=== PATIENT | female | born 1960 | race Caucasian/White ===

== ENCOUNTER 2016-11-13 06:18 | Emergency (ER) | payer OTHER ==
[2016-11-13] MEDS ORDERED: DIPH,PERTUS(ACELL)TETVAC-LF 0.5 ML VIAL IM ONE (06:32)
--- NOTE | 2016-11-13 08:04 | XR ---
EXAMINATION TYPE: XR elbow complete RT DATE OF EXAM: 11/13/2016 CLINICAL HISTORY: Fall injury with right elbow pain. TECHNIQUE: Frontal, lateral and oblique images of the right elbow are obtained. COMPARISON: None FINDINGS: There is no acute fracture/dislocation evident in the right elbow. No abnormal fat pad si gns are seen. The overlying soft tissue appears unremarkable. IMPRESSION: There is no acute fracture or dislocation in the right elbow.
--- NOTE | 2016-11-13 08:12 | ED ---
General Adult HPI - General Chief complaint: Extremity Injury, Upper Stated complaint: Fall-[facility] Time Seen by Provider: 11/13/16 07:03 Source: patient, RN notes reviewed Mode of arrival: ambulatory Limitations: no limitations - History of Present Illness Initial comments: 56 yo female presents status post fall at work. Patient states she caught her right knee and fell onto her right elbow. She is complaining only of elbow pain. She denies any head or neck trauma. Denies any LOC. Patient has no significant past medical history. - Related Data Home Medications Medication Instructions Recorded Confirmed PARoxetine HCL [Paxil Cr] 25 mg PO DAILY 11/13/16 11/13/16 Allergies Allergy/AdvReac Type Severity Reaction Status Date / Time azithromycin Allergy Rash/Hives Verified 11/13/16 07:54 Review of Systems ROS Statement: Those systems with pertinent positive or pertinent negative responses have been documented in the HPI. ROS Other: All systems not noted in ROS Statement are negative. Cardiovascular: Denies: chest pain Past Medical History Past Medical History: No Reported History History of Any Multi-Drug Resistant Organisms: None Reported Past Surgical History: Tubal Ligation Past Psychological History: No Psychological Hx Reported Smoking Status: Current every day smoker Past Alcohol Use History: Daily Past Drug Use History: None Reported General Exam Limitations: no limitations General appearance: alert, in no apparent distress Head exam: Present: atraumatic, normocephalic Eye exam: Present: normal appearance, PERRL ENT exam: Present: normal exam, normal oropharynx, mucous membranes moist Neck exam: Present: normal inspection, full ROM. Absent: tenderness Respiratory exam: Present: normal lung sounds bilaterally, respiratory distress Cardiovascular Exam: Present: regular rate, normal rhythm GI/Abdominal exam: Present: soft. Absent: distended, tenderness Extremities exam: Present: full ROM, other Course Vital Signs 11/13/16 11/13/16 11/13/16 06:28 08:36 08:50 Temperature 97.1 F L 97.9 F Pulse Rate 61 77 Respiratory 18 16 Rate Blood Pressure 188/92 212/93 159/74 O2 Sat by Pulse 100 100 Oximetry Medical Decision Making - Medical Decision Making 56-year-old female presenting with acute onset right elbow pain status post fall. Patient does have a minor abrasion, tenderness is updated. X-ray is negative for any acute fracture dislocation. Patient is placed in an Jhonny wrap for comfort. She will be discharged with outpatient follow-up. Diagnosis right elbow contusion. Disposition Clinical Impression: Elbow contusion Disposition: HOME SELF-CARE Condition: Good Instructions: Elbow Sprain (ED) Referrals: Lc Vaz MD [Primary Care Provider] - 1-2 days Time of Disposition: 08:11
[2016-11-13 08:37] VITALS: PULSE 77; RESP 16; TEMP 97.9
[2016-11-13 08:51] VITALS: BP 159/74
== END 2016-11-13 08:52 | disposition home or self-care (01) ==
LOC: EC 06:18
DX: S50.01XA Contusion of right elbow, initial encounter (principal); F17.200 Nicotine dependence, unspecified, uncomplicated; Z88.1 Allergy status to other antibiotic agents; Z23 Encounter for immunization; Z79.899 Other long term (current) drug therapy; W01.198A Fall on same level from slipping, tripping and stumbling with subsequent striking against other object, initial encounter; Y93.89 Activity, other specified; Y99.0 Civilian activity done for income or pay; Y92.69 Other specified industrial and construction area as the place of occurrence of the external cause
CPT/HCPCS: 90471; 90715; 99283

== ENCOUNTER 2018-08-17 12:16 | Emergency (ER) | payer OTHER ==
[2018-08-17 12:25] VITALS: RESP 18; TEMP 98.5
[2018-08-17] MEDS ORDERED: MORPHINE SULFATE 4 MG/ML SYRINGE IM STA ×2 (12:31→15:36)
[2018-08-17] MEDS ORDERED: LIDOCAINE 1% INJ 10MG/ML (20 ML MDV) SQ STA (12:32)
--- NOTE | 2018-08-17 13:00 | ED ---
General Adult HPI - General Chief complaint: Fall Stated complaint: fall, rt elbow injury, eye lac, rt ear Time Seen by Provider: 08/17/18 12:25 Source: patient Mode of arrival: ambulatory Limitations: no limitations - History of Present Illness Initial comments: 58-year-old female patient with no pertienent pmhx presents to ED with a fall sustained at approximately 8 PM last night. Patient reports that she was getting up off the toilet, fell forward making contact with her head and the wall. Patient denies any loss of consciousness. Patient primary complaint is a approximately 2 cm laceration above her right eyebrow as well as pain in her left elbow. Patient reports that she had her left elbow on the ground after the fall. Patient denies any loss of consciousness. Patient denies any headache, changes in vision, pain in neck. Patient ambulatory without difficulty today. Patient states that last tetanus shot was within 5 years. Systemic: Pt denies fatigue, myalgia, fever/chills, rash. Pt denies weakness, night sweats, weight loss. Neuro: Pt denies headache, visual disturbances, syncope or pre-syncope. HEENT: Pt denies ocular discharge or irritation, otalgia, rhinorrhea, pharyngitis or notable lymphadenopathy. Cardiopulmonary: Pt denies chest pain, SOB, heart palpitations, dyspnea on exertion. Abdominal/GI: Pt denies abdominal pain, n/v/d. : Pt denies dysuria, burning w/ urination, frequency/urgency. Denies new onset urinary or bowel incontinence. MSK: Pt denies myalgia, loss of strength or function in extremities. Neuro: Pt denies new onset weakness, paresthesias. - Related Data Home Medications Medication Instructions Recorded Confirmed PARoxetine HCL [Paxil Cr] 25 mg PO DAILY 11/13/16 11/13/16 Previous Rx's Medication Instructions Recorded Hydrocodone/Acetaminophen [[place] 1 each PO Q6HR PRN #12 tab 08/17/18 5-325] Allergies Allergy/AdvReac Type Severity Reaction Status Date / Time azithromycin Allergy Rash/Hives Verified 08/17/18 12:24 Review of Systems ROS Statement: Those systems with pertinent positive or pertinent negative responses have been documented in the HPI. ROS Other: All systems not noted in ROS Statement are negative. Past Medical History Past Medical History: No Reported History History of Any Multi-Drug Resistant Organisms: None Reported Past Surgical History: Tubal Ligation Past Psychological History: No Psychological Hx Reported Smoking Status: Current every day smoker Past Alcohol Use History: Abuse, Daily, Heavy Past Drug Use History: None Reported General Exam - General Exam Comments Initial Comments: Constitutional: NAD, AOX3, Pt has pleasant affect. HEENT: NC/AT, trachea midline, neck supple, no lymphadenopathy. Posterior pharynx non erythematous, without exudates. External ears appear normal, without discharge. Mucous membranes moist. Eyes PERRLA, EOM intact. There is no scleral icterus. No pallor noted. Cardiopulmonary: RRR, no murmurs, rubs or gallops, no JVD noted. Lungs CTAB in anterior and posterior garrison. No peripheral edema. Abdominal exam: Abdomen soft and non-distended. Abdomen non-tender to palpation in all 4 quadrants. Bowel sounds active in LLQ. No hepatosplenomegaly. No ecchymosis Neuro: CN II-XII intact. No nuchal rigidity. No cervical spinal tenderness. MSK: Right elbow mildly edematous, range of motion limited secondary to pain. Tenderness to palpation. No ecchymoses. No other tenderness in right upper extremity. 2 cm laceration noted above right eyebrow. No ecchymoses. Vigorously irrigated with 1 L normal saline, loosely approximated one simple interrupted suture. No posterior calf tenderness bilaterally, homans sign negative bilaterally. Posterior tibialis and radial pulse +2 bilaterally. Sensation intact in upper and lower extremities. Full active ROM in upper and lower extremities, 5/5 stregnth. Limitations: no limitations Course Vital Signs 08/17/18 08/17/18 12:22 15:43 Temperature 98.5 F Pulse Rate 85 78 Respiratory 18 18 Rate Blood Pressure 153/87 153/72 O2 Sat by Pulse 100 98 Oximetry Medical Decision Making - Medical Decision Making 58-year-old female patient with no pertienent pmhx presents to ED with a fall sustained at approximately 8 PM last night. Patient reports that she was getting up off the toilet, fell forward making contact with her head and the wall. Patient denies any loss of consciousness. Patient primary complaint is a approximately 2 cm laceration above her right eyebrow as well as pain in her left elbow. Patient reports that she had her left elbow on the ground after the fall. Patient denies any loss of consciousness. Patient denies any headache, changes in vision, pain in neck. Patient ambulatory without difficulty today. Patient states that last tetanus shot was within 5 years. Patient has signs stable, afebrile. Physical exam displayed: Right elbow mildly edematous, range of motion limited secondary to pain. Tenderness to palpation. No ecchymoses. No other tenderness in right upper extremity. 2 cm laceration noted above right eyebrow. No ecchymoses. Vigorously irrigated with 1 L normal saline, loosely approximated one simple interrupted suture. CT of brain and cervical spine, CT orbits display laceration, no other acute pathology. Plain films of right lower extremity splinted displaced and included fracture of the olecranon. Laceration above right eye eyebrow irrigated with 1 L normal saline, closed with one simple interrupted suture. Right olecranon fracture placed in posterior 90 degree splint. Patient vascular intact if symptoms worsen. Patient discharged with sling. call manager orthopedic surgeon Dr. Wilder was contacted who was in agreement with plan. Patient return to ED in 5 days for suture removal. Patient will follow-up with Dr. Wilder tomorrow for olecranon fracture. Patient return to ER condition worsens in any way. Patient no driving home. Case discussed with Dr. Hopson. Disposition Clinical Impression: Olecranon fracture, Fall Disposition: HOME SELF-CARE Condition: Stable Instructions (If sedation given, give patient instructions): Arm Fracture in Adults (ED), Fall Prevention (ED) Additional Instructions: Patient to adhere to previously discussed treatment plan and will take medication(s) as directed. Patient to follow up with PCP in 1-2 days. Patient to return to ED if symptoms do not improve. Please take pain medication only as needed. Please follow-up with orthopedic consult tomorrow. Please return to ER if condition worsens in any way. Please return for suture removal: Hand: 7-10 days Face: 5 days Chest/abdomen: 12-14 days Extremities: 7-10 days Scalp: 7 days Eyebrow: 5-7 days Foot/sole: 12-14 days Please monitor for signs and symptoms of infection including: redness, warmth, drainage, discharge. Please return to ED if these signs or symptoms occur, new signs or symptoms develop or if condition worsens in anyway. Prescriptions: Hydrocodone/Acetaminophen [[place] 5-325] 1 each PO Q6HR PRN #12 tab PRN Reason: Pain Is patient prescribed a controlled substance at d/c from ED?: Yes When asked, does pt state using other controlled substances?: No If prescribed controlled substance>3 days was MAPS reviewed?: Prescribed <3 Days If opioid is for acute pain is fill amount 7 days or less?: Yes If Rx opioid, was Start Talking consent form obtained?: Yes Referrals: Cheo Mcfarland MD [Primary Care Provider] - 1-2 days Chandana Wilder MD [STAFF PHYSICIAN] - 1-2 days
--- NOTE | 2018-08-17 13:33 | CT ---
EXAMINATION TYPE: CT brain cspine wo con DATE OF EXAM: 08/17/2018 COMPARISON: Previous study dated 01/31/2016 HISTORY: Fall, Rt supraorbital laceration CT DLP: 1031 mGycm Automated exposure control for dose reduction was used. TECHNIQUE: CT scan of the head and cervical spine are performed without contrast. FINDINGS: BRAIN:Central structures are midline. There is no evidence of hydrocephalus. No acute focal lesion, m ass effect or midline shift is seen. I do not see evidence of intracranial blood. There is chronic mucoperiosteal thickening involving the posterior left sided ethmoidal air cells. Th e remainder the paranasal sinuses and mastoids are clear. The bony calvarium is intact. IMPRESSION: 1. NO ACUTE INTRACRANIAL ABNORMALITY. 2. MINIMAL, CHRONIC LEFT-SIDED ETHMOIDAL MUCOSAL DISEASE. CERVICAL SPINE: There is some apical pleural scarring present bilaterally. Prevertebral soft tissues are normal. Vertebral body height and alignment are maintained. Atlantoaxial relationships are normal. There is mild degenerative disc disease and hypertrophic spondylosis present at C4-5, C5-6 and C6-7. There is mild uncovertebral joint disease also present at these levels. The facets are unremarkable. No definite protrusion is seen. No fracture is identified. IMPRESSION: 1. NO ACUTE OSSEOUS LESION. 2. DEGENERATIVE CHANGE.
--- NOTE | 2018-08-17 13:43 | XR ---
EXAMINATION TYPE: XR elbow limited RT , 3 VIEWS DATE OF EXAM ORDERED: 08/17/2018 HISTORY: Pain. COMPARISON: None. FINDINGS: There is an acute, displaced fracture of the olecranon. This is rotated approximately 90 d egrees. No definite supracondylar fracture is seen. IMPRESSION: DISPLACED AND ANGULATED FRACTURE OF THE OLECRANON. CODE D: INITIAL ASSESSMENT FOR CLOSED FRACTURE.
--- NOTE | 2018-08-17 13:44 | XR ---
EXAMINATION TYPE: XR forearm RT , 2 VIEWS DATE OF EXAM ORDERED: 08/17/2018 HISTORY: Pain. COMPARISON: None. FINDINGS: Olecranon fractures again identified. No other fracture of the long bones of the forearm i s identified. IMPRESSION: MODERATELY DISPLACED AND ANGULATED FRACTURE OF THE OLECRANON. CODE A: INITIAL ENCOUNTER FOR CLOSED FRACTURE.
--- NOTE | 2018-08-17 13:46 | XR ---
EXAMINATION TYPE: XR humerus RT , 3 VIEWS DATE OF EXAM ORDERED: 08/17/2018 HISTORY: Pain. COMPARISON: None. FINDINGS: Olecranon fractures again identified. No long bone fractures identified. I suspect a joint effusion. IMPRESSION: OLECRANON FRACTURE PREVIOUSLY DESCRIBED CODE A: INITIAL ENCOUNTER FOR CLOSED FRACTURE.
--- NOTE | 2018-08-17 13:48 | XR ---
EXAMINATION TYPE: XR chest 2V DATE OF EXAM: 08/17/2018 HISTORY: Pain following trauma. REFERENCE: Previous study dated 07/22/2011. FINDINGS: The lungs remain clear. Pleural space are clear. The heart is not enlarged. IMPRESSION: NO ACTIVE INTRATHORACIC DISEASE.
[2018-08-17 15:43] VITALS: BP 153/72; PULSE 78
--- NOTE | 2018-08-17 15:50 | CT ---
EXAMINATION TYPE: CT orbits wo con DATE OF EXAM: 08/17/2018 COMPARISON: HISTORY: Supraorbital right-sided laceration CT DLP: mGycm Automated exposure control for dose reduction was used. FINDINGS: The orbital margins are intact. There is no evidence of retro-orbital mass. The globes are symmetric. There is soft tissue air above the right orbit consistent with a laceration. There is no evidence of soft tissue mass. The maxilla appears intact. There is normal aeration of the maxillary and frontal and sphenoid sinuses. There is minimal mucosal thickening left side ethmoid sinus. Nasal bone appears intact. IMPRESSION: LACERATION DEFORMITY OF THE RIGHT SUPRAORBITAL REGION. NO FOREIGN BODY SEEN. NO FRACTURE.
== END 2018-08-17 16:15 | disposition home or self-care (01) ==
LOC: EC 12:16
DX: S52.021A Displaced fracture of olecranon process without intraarticular extension of right ulna, initial encounter for closed fracture (principal); S01.81XA Laceration without foreign body of other part of head, initial encounter; F17.200 Nicotine dependence, unspecified, uncomplicated; Z79.899 Other long term (current) drug therapy; Z88.1 Allergy status to other antibiotic agents; W18.11XA Fall from or off toilet without subsequent striking against object, initial encounter
CPT/HCPCS: 99284 ×2; 12011 ×2; 29105; 96372 ×3; 73060; 73070; 73090; 71046; 72125; 70450; 70480; J2270; J2001

== ENCOUNTER → 2020-03-18 | Outpatient (CLI) | payer OTHER ==
--- NOTE | 2020-03-18 14:37 | XR ---
EXAMINATION TYPE: XR shoulder complete RT DATE OF EXAM: 03/18/2020 CLINICAL HISTORY: Strain injury with pain TECHNIQUE: Three views of the right shoulder are obtained. COMPARISON: Right humerus x-ray August 17, 2018. FINDINGS: There is no acute fracture/dislocation evident in the right shoulder. Moderate narrowing a cromioclavicular joint redemonstrated. Distal acromion morphology unremarkable. Mild narrowing glenoh umeral joint with mild spurring. The visualized ribs are intact and unremarkable. IMPRESSION: There is no acute fracture or dislocation in the right shoulder.
--- NOTE | 2020-03-18 14:41 | XR ---
EXAMINATION TYPE: XR ribs RT DATE OF EXAM: 03/18/2020 COMPARISON: Chest x-ray August 17, 2018. HISTORY: Injury with pain. TECHNIQUE: Frontal and oblique images right-sided ribs. FINDINGS: No acute displaced fracture in the right-sided ribs. Visualized right lung is clear. [place]on ing soft tissue is unremarkable. IMPRESSION: As above.
== END | disposition home or self-care (01) ==
LOC: RADXRMAIN 13:55
PROVIDERS: ATTEND Emergency Medicine
DX: M25.511 Pain in right shoulder (principal); S29.011A Strain of muscle and tendon of front wall of thorax, initial encounter